=== PATIENT | male | born 1985 | race Caucasian/White ===

== ENCOUNTER 2016-12-19 04:00 | Emergency (ER) | payer MEDICAID ==
[~2016-12-19] VITALS: Ht 162.6 cm; Wt 62.5 kg
[~2016-12-19 04:00] MED LIST: ACET1TAB40 PO; ALBU18HF INHALATION; AZIT250T94 PO; FLUT9.9S NASAL; LORA1TAB54 PO; PANT40TA3 PO; PANT40TA4 PO; RANI150T9 PO
[2016-12-19 04:03] VITALS: Ht 162.6 cm; Wt 62.5 kg
[2016-12-19] MEDS ORDERED: GUAIFENESIN/CODEINE 5ML CUP PO ONE (04:30)
--- NOTE | 2016-12-19 04:38 | ERD ---
ER Documentation Chief Complaint Date/Time DATE: 12/19/16 TIME: 04:35 Chief Complaint cough x 2 days w/ phlegm HPI 31-year-old male presents here in emergency department for complaints of cough for 2 days. Patient has been having cough with whitish phlegm, is unable to cough up phlegm at times. Patient has been having on and off wheezing. Patient denies any fever or chills. Patient denies any sore throat or ear pain. Patient denies any sick complex. Patient did not take any medications to help with symptoms. Patient denies any chest pain or palpitations. Patient denies any dizziness. ROS All systems reviewed and are negative except as per history of present illness. Medications Home Meds Active Scripts Loratadine/Pseudoephedrine* (Claritin-D* 12 Hr) 5-120 Mg Tab.er.12h, 1 TAB PO Q12, #60 TAB.SA Prov:HARVEY CONTRERAS PA-C 06/02/16 Fluticasone Propionate (Flonase Allergy Relief) 9.9 Ml Glenvil.susp, 1 SPRAY NASAL DAILY, #1 BOTTLE TO EACH NOSTRIL Prov:HARVEY CONTRERAS PA-C 06/02/16 Albuterol Sulfate* (Ventolin HFA*) 18 Gm Hfa.aer.ad, 2 PUFF INHALATION Q4H, #1 INHALER Prov:MIREILLE DIALLO PA-C 03/02/16 Ranitidine Hcl* (Zantac*) 150 Mg Tablet, 150 MG PO BID Y for EPIGASTRIC PAIN, # 60 TAB Prov:SHANAE SPEARS PA-C 03/01/16 Azithromycin* (Zithromax*) 250 Mg Tablet, 250 MG PO .AYLA DIRECTED, #6 TAB TAKE 500 MG (2 TABS) THE FIRST DAY THEN 250 MG (1 TAB) DAYS 2-5 Prov:SHANAE SPEARS PA-C 03/01/16 Acetaminophen-Codeine* (Acetaminophen-Cod #3*) 300-30 Mg Tab, 1 TAB PO Q4H Y for PAIN, #10 TAB Prov:EMELYN COLIN MD 02/20/16 Pantoprazole* (Protonix*) 40 Mg Tablet.dr, 40 MG PO DAILY, #20 TAB Prov:EMELYN COLIN MD 02/20/16 Pantoprazole* (Pantoprazole*) 40 Mg Tabec, 40 MG PO BID for 90 Days Prov:LOBO GARRIDO MD 09/09/15 Allergies Allergies: Coded Allergies: No Known Allergy (Unverified , 06/02/16) PMhx/Soc History of Surgery: Yes (uvula sx) Anesthesia Reaction: No Hx Neurological Disorder: No Hx Respiratory Disorders: No Hx Cardiac Disorders: No Hx Psychiatric Problems: No Hx Miscellaneous Medical Probl: Yes (gastric ulcers ) Hx Alcohol Use: No Hx Substance Use: No Hx Tobacco Use: No Smoking Status: Never smoker FmHx Family History: No coronary disease, No diabetes, No other Physical Exam Vitals Vital Signs Date Time Temp Pulse Resp B/P Pulse Ox O2 Delivery O2 Flow Rate FiO2 12/19/16 04:03 98.7 99 20 133/80 100 Physical Exam GENERAL: The patient is well developed and appropriate for usual state of health, in no apparent distress. CHEST: Clear to auscultation bilaterally. There are no rales, wheezes or rhonchi. HEART: Regular rate and rhythm. No murmurs, clicks, rubs or gallops. No S3 or S4. ABDOMEN: Soft, nontender and nondistended. Good bowel sounds. No rebound or guarding. No gross peritonitis. No gross organomegaly or masses. No [place] sign or McBurney point tenderness. BACK: No midline or flank tenderness. EXTREMITIES: Equal pulses bilaterally. There is no peripheral clubbing, cyanosis or edema. No focal swelling or erythema. Full range of motion. Grossly neurovascularly intact. NEURO: Alert and oriented. Cranial nerves 2-12 intact. Motor strength in all 4 extremities with 5/5 strength. Sensation grossly intact. Normal speech and gait. SKIN: There is no apparent rash or petechia. The skin is warm and dry. HEMATOLOGIC AND LYMPHATIC: There is no evidence of excessive bruising or lymphedema. No gross cervical, axillary, or inguinal lymphadenopathy. Results 24 hrs Current Medications Medications (Trade) Dose Ordered Sig/Lauro Route PRN Reason Start Time Stop Time Status Last Admin Dose Admin Guaifenesin/ Codeine Phosphate (Robitussin Ac Liquid Cup) 10 ml ONCE ONCE PO 12/19/16 04:30 12/19/16 04:31 DC 12/19/16 04:23 Cough medication was given here in emergency department, verbalizing much better afterwards. PROCEDURE: CHEST - 1 VIEW CLINICAL INDICATION: 31-year-old male with cough. TECHNIQUE: A single frontal AP supine portable view of the chest was performed. The images were reviewed on a PACS workstation. COMPARISON: Chest x-ray February 29, 2016. FINDINGS: The cardiomediastinal silhouette has a normal appearance. There is no evidence for an infiltrate. There is no evidence for congestive heart failure. There is no evidence for pneumothorax. The osseous structures are intact. IMPRESSION: No evidence for active cardiopulmonary disease. .Niels Veronica MD, Date Time Electronically viewed and signed by .Niels Veronica MD, on 12/19/2016 04:44 .M/ CC: CRISS TAYLOR [employer] Procedures/MDM Medical Decision Making: Patient symptoms are most likely consistent with acute bronchitis, which viral in origin. There is low suspicion for Pneumonia at this time since patients lungs sounds are clear, patient O2 saturation is normal and patient doesnt show any respiratory distress. Patients chest xray doesnt show infiltrates or any other cardiopulmonary emergencies at this time. There is low suspicion for other cardiopulmonary emergencies at this time such as CHF, Pulmonary Embolism, Pneumothorax, Aortic Aneurysm or any other cardiopulmonary emergencies at this time. There is low suspicion for sepsis. Patient appears well and is hemodynamically stable. Fever is controlled with medicines. Disposition: Home. Condition: Stable Prescriptions: Guaifenesin with codeine Zyrtec Flonase albuterol ibuprofen Instructions: Patient is advised to take medications as prescribed. Patient is advised to rest. Patient advised to increase fluid intake, do humidifier at home and if possible, do salt water gargles. Patient is advised that if symptoms are worse, shortness of breath, uncontrolled fever, stridor, vomiting, worst signs and symptoms to return to emergency department immediately. Otherwise, patient is advised to follow up with primary doctor in 5-7 days. Departure Diagnosis: Primary Impression: Acute bronchitis Bronchitis organism: unspecified organism Qualified Code: J20.9 - Acute bronchitis, unspecified organism Condition: Stable Patient Instructions: Bronchitis, No Antibiotic (Adult) Additional Instructions: Patient is advised to take medications as prescribed. Patient is advised to rest. Patient advised to increase fluid intake, do humidifier at home and if possible, do salt water gargles. Patient is advised that if symptoms are worse, shortness of breath, uncontrolled fever, stridor, vomiting, worst signs and symptoms to return to emergency department immediately. Otherwise, patient is advised to follow up with primary doctor in 5-7 days. CRISS TAYLOR NP December 19, 2016 04:38
--- NOTE | 2016-12-19 04:44 | RADRPT ---
PROCEDURE: CHEST - 1 VIEW CLINICAL INDICATION: 31-year-old male with cough. TECHNIQUE: A single frontal AP supine portable view of the chest was performed. The images were r eviewed on a PACS workstation. COMPARISON: Chest x-ray February 29, 2016. FINDINGS: The cardiomediastinal silhouette has a normal appearance. There is no evidence for an infiltrate. There is no evidence for congestive heart failure. There is no evidence for pneumothorax. The osseou s structures are intact. IMPRESSION: No evidence for active cardiopulmonary disease. .Niels Veronica MD, Date Time Electronically viewed and signed by .Niels Veronica MD, on 12/19/2016 04:44 .M/
[2016-12-19] MEDS ORDERED: ALBU8.5H3 INH (05:02)
[2016-12-19] MEDS ORDERED: IBUP-1542 PO (05:02)
[2016-12-19] MEDS ORDERED: CETI10CA PO (05:02)
[2016-12-19] MEDS ORDERED: GUAI473L22 PO (05:02)
[2016-12-19] MEDS ORDERED: FLUT9.9S NASAL (05:02)
== END 2016-12-19 05:11 | disposition home or self-care (01) ==
LOC: FTE 04:00
DX: J20.9 Acute bronchitis, unspecified (principal)
CPT/HCPCS: 71010; Z7502; Z7610